=== PATIENT | male | born 1960 | race Caucasian/White ===

== ENCOUNTER 2017-02-09 13:48 | Emergency (ER) | payer BC, OTHER ==
[~2017-02-09] VITALS: Ht 182.9 cm; Wt 99.8 kg
[2017-02-09 13:49] VITALS: BP 202/111
[2017-02-09] MEDS ORDERED: DOXYCYCLINE 10100 MG PO (14:34)
[2017-02-09] MEDS ORDERED: TRAMADOL 50 MG50 MG PO (14:34)
== END 2017-02-09 14:55 | disposition home or self-care (01) ==
LOC: ER 13:48
DX: T63.481A Toxic effect of venom of other arthropod, accidental (unintentional), initial encounter (principal); L03.317 Cellulitis of buttock; I10 Essential (primary) hypertension; F17.210 Nicotine dependence, cigarettes, uncomplicated; W57.XXXA Bitten or stung by nonvenomous insect and other nonvenomous arthropods, initial encounter; Y93.89 Activity, other specified; Y92.89 Other specified places as the place of occurrence of the external cause; Y99.9 Unspecified external cause status